=== PATIENT | male | born 1990 | race American Indian/Alaskan Native ===

== ENCOUNTER 2018-01-27 03:34 | Emergency (ER) | payer OTHER ==
[~2018-01-27 03:34] MED LIST: FLEXERIL10 MG PO; NAPROXEN500 MG PO; NORCO 5-325 TA1 EACH PO; PREDNISONE20 MG PO
[2018-01-27] MEDS ORDERED: NORCO 5-325 TA1 EACH PO (06:45)
== END 2018-01-27 07:10 | disposition home or self-care (01) ==
LOC: ED 03:34 → EDBD 03:36 → ED 07:10
DX: S06.0X9A Concussion with loss of consciousness of unspecified duration, initial encounter (principal); S02.2XXA Fracture of nasal bones, initial encounter for closed fracture; S60.222A Contusion of left hand, initial encounter; S60.221A Contusion of right hand, initial encounter; S80.12XA Contusion of left lower leg, initial encounter; S80.11XA Contusion of right lower leg, initial encounter; F10.129 Alcohol abuse with intoxication, unspecified; Z23 Encounter for immunization; Z88.0 Allergy status to penicillin; Y90.8 Blood alcohol level of 240 mg/100 ml or more; Y04.2XXA Assault by strike against or bumped into by another person, initial encounter
CPT/HCPCS: 70450; 70486; 71260; 72125; 73090; 74177; 80053; 81001; 82150; 82550; 83690; 85025; 86850; 86900; 86901; 90471; 90715; 96374; 96375; 99284; G0480; J1170; J2405; J7030; Q9967

== ENCOUNTER 2018-11-08 11:28 | Emergency (ER) | payer OTHER ==
[~2018-11-08] VITALS: Ht 185.4 cm; Wt 74.8 kg
[2018-11-08] MEDS ORDERED: ZOFRAN4 MG PO (15:53)
[2018-11-08] MEDS ORDERED: NORCO 5-325 TA1 EACH PO (15:53)
== END 2018-11-08 16:10 | disposition home or self-care (01) ==
LOC: ED 11:28
DX: R19.7 Diarrhea, unspecified (principal); F17.200 Nicotine dependence, unspecified, uncomplicated; Z88.0 Allergy status to penicillin
CPT/HCPCS: 80053; 81001; 83690; 85025; 87493; 96374; 99284-25; J2405; J7030

== ENCOUNTER 2020-04-23 15:21 | Emergency (ER) | payer OTHER ==
[~2020-04-23] VITALS: Ht 185.4 cm; Wt 79.4 kg
--- OUTSIDE RECORDS SUMMARY | ~2020-04-23 | XMS | Encounter Summary ---
Demographics + + + | Address | [address] | | | [place] [address] | + + + | Home Phone | | + + + | Preferred Language | Unknown | + + + | Marital Status | Single | + + + | Adventist Affiliation | Unknown | + + + | Race | Unknown | + + + | Ethnic Group | Unknown | + + + Author + + + | Author | [facility] | | | and [place] | + + + | Organization | [facility] | | | and [place] | + + + | Address | Unknown | + + + | Phone | Unavailable | + + + Support + + +---------+ + | Name | Relationship | Address | Phone | + + +---------+ + | Shawnee Alberto | ECON | Unknown | | + + +---------+ + Care Team Providers + +------+ + | Care Miner Operator Name | Role | Phone | + +------+ + PCP | Unavailable | + +------+ + Encounter Details +--------+ + + + + | Date | Type | Department | Care Team | Description | +--------+ + + + + | 11/20/ | Hospital | [facility] | | | | 1999 | Encounter | MED CTR GENERIC OP | | | | | | CONV DEPT [address] | | | | | | [address] [place], | | | | | | [place] [address] | | | | | | [phone] | | | +--------+ + + + + Social History + +-------+ +--------+------+ | Tobacco Use | Types | Packs/Day | Years | Date | | | | | Used | | + +-------+ +--------+------+ | Never Assessed | | | | | + +-------+ +--------+------+ + + + | Sex Assigned at | Date Recorded | | | | + + + | Not on file | | + + + documented as of this encounter Plan of Treatment Not on filedocumented as of this encounter Visit Diagnoses Not on filedocumented in this encounter"
--- OUTSIDE RECORDS SUMMARY | ~2020-04-23 | XMS | Encounter Summary ---
Demographics + + + | Address | [address] | | | [place] [address] | + + + | Home Phone | | + + + | Preferred Language | Unknown | + + + | Marital Status | Single | + + + | Christian Affiliation | Unknown | + + + | Race | Unknown | + + + | Ethnic Group | Unknown | + + + Author + + + | Author | [facility] | | | and [place] | + + + | Organization | [facility] | | | and [place] [...] Team Providers + +------+ + | Care Colorist Formulator Name | Role | Phone | + +------+ + PCP | Unavailable | + +------+ + Encounter Details +--------+ + + + + | Date | Type | Department | Care Team | Description | +--------+ + + + + | 10/22/ | Hospital | [facility] | | | | 1999 | Encounter | MED CTR EMERGENCY | | | | | | CENTER [address] | | | | | | [place] | | | | | | [address] | | | | | | [phone] | | | +--------+ + + + [...]
--- OUTSIDE RECORDS SUMMARY | ~2020-04-23 | XMS | Encounter Summary ---
Demographics + + + | Address | [address] | | | [place] [address] | + + + | Home Phone | | + + + | Preferred Language | Unknown | + + + | Marital Status | Single | + + + | Mosque Affiliation | Unknown | + + + | Race | Unknown | + + + | Ethnic Group | Unknown | + + + Author + + + | Author | [facility] | | | and [place] | + + + | Organization | [facility] | | | and [...] Team Providers + +------+ + | Care Iron Piler Name | Role | Phone | + +------+ + PCP | Unavailable | + +------+ + Encounter Details +--------+ + + + + | Date | Type | Department | Care Team | Description | +--------+ + + + + | 12/19/ | Hospital | [facility] | | | | 1999 | Encounter | MED CTR GENERIC OP | | | | | | CONV DEPT [address] | | | | | | [address], | | | | | | [place] [address] | | | | | | [phone] | | | +--------+ + + + [...]
--- OUTSIDE RECORDS SUMMARY | ~2020-04-23 | XMS | Encounter Summary ---
Demographics + + + | Address | [address] | | | [place] [address] | + + + | Home Phone | | + + + | Preferred Language | Unknown | + + + | Marital Status | Single | + + + | Religion Affiliation | Unknown | + + + | Race | Unknown | + + + | Ethnic Group | Unknown | + + + Author + + + | Author | [facility] | | | and [place] | + + + | Organization | [facility] | | | and [place] | [...] Team Providers + +------+ + | Care Steamfitter Apprentice Name | Role | Phone | + +------+ + PCP | Unavailable | + +------+ + Reason for Visit +--------+--------+ + | Reason | Onset | Comments | | | Date | | +--------+--------+ + | Letter | 03/19/ | Colon Recall | | | 2016 | | +--------+--------+ + Encounter Details +--------+ + + + + | Date | Type | Department | Care Team | Description | +--------+ + + + + | 03/19/ | Telephone | [facility] [place] | Junior Lima MD | Letter (Colon | | 2017 | | GASTROENTEROLOGY | [address], [place] | Recall) | | | | [address] [place] | [address] [place], [place] | | | | | [address] [place], [place] | [address] | | | | | [address] | | | | | | [phone] | | | +--------+ + + + [...] + + documented as of this encounter Miscellaneous Notes Telephone Encounter - Elise Pittman - 03/19/2017 4:59 PM PDTAttempted to call patient f or an updated address, [facility] to callback for questions, received return letter for colonoscopy . Closing. documented in t his encounter Plan of Treatment Not on filedocumented as of this encounter Visit Diagnoses Not on filedocumented in this encounter"
--- OUTSIDE RECORDS SUMMARY | ~2020-04-23 | XMS | Encounter Summary ---
Demographics + + + | Address | [address] | | | [place] [address] | + + + | Home Phone | | + + + | Preferred Language | Unknown | + + + | Marital Status | Single | + + + | Rastafarian Affiliation | Unknown | + + + | Race | Unknown | + + + | Ethnic Group | Unknown | + + + Author + + + | Author | [facility] | | | and [place] | + + + | Organization | [facility] | | | and [place] [...] Team Providers + +------+ + | Care Clerical Aide Name | Role | Phone | + +------+ + PCP | Unavailable | + +------+ + Encounter Details +--------+ + + + + | Date | Type | Department | Care Team | Description | +--------+ + + + + | 02/08/ | Hospital | [facility] | | | | 2011 | Encounter | MED CTR MP INTRA OP | | | | | | [address] | | | | | | [place] | | | | | | [address] | | | | | | [phone] | | | +--------+ + + + [...] documented as of this encounter Miscellaneous Notes Op Note - Dieudonne Rosenthal MD - 02/09/2012 10:31 AM PDTPatient Name: Jayden Christianson Gender: Inga Procedure Date: 02/09/2012 9:30 AM Date of : 1990 Age: 21 Admit Type: Outpatient Room: Endo Room 2 Note Status: Finalized Attending MD: Dieudonne Rosenthal MD Procedure: Colonoscopy Indications: Generalized abdominal pain Providers: Duglas Rosenthal MD, Lily Chapman RN, Melba Blancas, Associate Justice, Justus Alcaraz MD (Anesthesia Staff) Referring MD: [facility] Lonnycherie Munoz MD Medicines: IV General Anesthesia w / Propofal Complications: No immediate complications. Estimated blood loss: None. Procedure: - Prior to the procedure, a History and Physical was performed, and patient medications and allergies were reviewed. The risks and benefits of the procedure and the sedation options and risks were discussed with the patient. All questions were answered and informed consent was obtained. Patient identification and proposed procedure were verified by the physician, the nurse and the anesthesiologist in the procedure room. Mental Status Examination: alert and oriented. Airway Examination: Mallampati Class I (tonsillar pillars visualized). Respiratory Examination: clear to auscultation. CV Examination: normal. Prophylactic Antibiotics: The patient does not require prophylactic antibiotics. Prior Anticoagulants: The patient has taken no previous anticoagulant or antiplatelet agents. ASA Grade Assessment: II - A patient with mild systemic disease. After reviewing the risks and benefits, the patient was deemed in satisfactory condition to undergo the procedure. The anesthesia plan was to use general anesthesia. Immediately prior to administration of medications, the patient was re-assessed for adequacy to receive sedatives. The physical status of the patient was re-assessed after the procedure. After I obtained informed consent, the scope was passed under direct vision. Throughout the procedure, the patient's blood pressure, pulse, and oxygen saturations were monitored continuously. The endoscope was introduced through the anus and advanced to the terminal ileum, with identification of the appendiceal orifice and IC valve. The colonoscopy was performed without difficulty. The patient tolerated the procedure well. The quality of the bowel preparation was good. Findings: The perianal and digital rectal examinations were normal. A localized area of the terminal ileum was congested. Biopsy with a cold forceps was performed for histology. The entire examined colon appeared normal. Impression: - Congested ileal mucosa. This was biopsied. - The colon is normal. Recommendation: - Discharge patient to home (ambulatory). - Return to primary care physician as previously scheduled. - Await pathology results. Dieudonne Rosenthal MD Signed Date: 02/09/2012 11:41 AM Number of Addenda: 0 Note initiated on 02/09/2012 9:28 AM Scope Withdrawal Time: N/A Total Procedure Duration Time: 08 minutes 05 seconds <Electronically Signed by Dieudonne Rosenthal MD> 02/09/12 1142 Op Note - Dieudonne Rosenthal MD - 02/09/2012 10:31 AM PDTPatient Name: Jayden Christianson Gender: Inga Procedure Date: 02/09/2012 11:15 AM Date of : 1990 Age: 21 Admit Type: Outpatient Room: Endo Room 2 Note Status: Finalized Attending MD: Dieudonne Rosenthal MD Procedure: Upper GI endoscopy Indications: Dyspepsia Providers: Dieudonne Rosenthal MD, Lily Chapman RN, Melba Blancas, Associate Justice, Franklin Franklin MD (Anesthesia Staff) Referring MD: [facility] MD Tammy Medicines: IV General Anesthesia w/ Propofal Complications: No immediate complications. Estimated blood loss: None. Procedure: - Prior to the procedure, a History and Physical was performed, and patient medications and allergies were reviewed. The risks and benefits of the procedure and the sedation options and risks were discussed with the patient. All questions were answered and informed consent was obtained. Patient identification and proposed procedure were verified by the physician, the nurse and the anesthesiologist in the procedure room. Mental Status Examination: alert and oriented. Airway Examination: Mallampati Class I (tonsillar pillars visualized). Respiratory Examination: clear to auscultation. CV Examination: normal. Prophylactic Antibiotics: The patient does not require prophylactic antibiotics. Prior Anticoagulants: The patient has taken no previous anticoagulant or antiplatelet agents. ASA Grade Assessment: II - A patient with mild systemic disease. After reviewing the risks and benefits, the patient was deemed in satisfactory condition to undergo the procedure. The anesthesia plan was to use general anesthesia. Immediately prior to administration of medications, the patient was re-assessed for adequacy to receive sedatives. The physical status of the patient was re-assessed after the procedure. After obtaining informed consent, the endoscope was passed under direct vision. Throughout the procedure, the patient's blood pressure, pulse, and oxygen saturations were monitored continuously. The endoscope was introduced through the mouth, and advanced to the second part of duodenum. The upper GI endoscopy was accomplished without difficulty. The patient tolerated the procedure well. Findings: A small hiatus hernia was present. Diffuse mildly erythematous mucosa with no bleeding was found in the entire examined stomach. Biopsies were taken with a cold forceps for histology. The examined duodenum was normal. Impression: - Hiatus hernia. - Gastric mucosal abnormality in the stomach characterized by erythema. This was biopsied. - Normal examined duodenum. Recommendation: - Await pathology results. - Discharge patient to home (ambulatory). - The patient will be observed post-procedure, until all discharge criteria are met. - Perform a colonoscopy today. Dieudonne Rosenthal MD Signed Date: 02/09/2012 11:24 AM Number of Addenda: 0 Note initiated on 02/09/2012 11:13 AM Scope Withdrawal Time: N/A Total Procedure Duration Time: 02 minutes 41 seconds <Electronically Signed by Dieudonne Rosenthal MD> 02/09/12 1125 documented in this encounter Plan of Treatment Not on filedocumented as of this encounter Visit Diagnoses Not on filedocumented in this encounter"
--- OUTSIDE RECORDS SUMMARY | ~2020-04-23 | XMS | Encounter Summary ---
Demographics + + + | Address | [address] | | | [place] [address] | + + + | Home Phone | | + + + | Preferred Language | Unknown | + + + | Marital Status | Single | + + + | Baptist Affiliation | Unknown | + + + | Race | Unknown | + + + | Ethnic Group | Unknown | + + + Author + + + | Author | [facility] | | | and [place] | + + + | Organization | [facility] | | | and [place] [...] Team Providers + +------+ + | Care Mining Machinery Assembler Name | Role | Phone | + +------+ + PCP | Unavailable | + +------+ + Encounter Details +--------+ + + + + | Date | Type | Department | Care Team | Description | +--------+ + + + + | 06/24/ | Abstract | [place] [facility] | [facility] | | | 2011 | | Conversion Location | SR | | | | | [address] [facility] | | | | | | [place], [place] | | | | | | [address] | | | | | | [phone] | | | +--------+ + + + [...] + + documented as of this encounter Last Filed Vital Signs + + + + + | Vital Sign | Reading | Time Taken | Comments | + + + + + | Blood Pressure | 116/66 | 01/13/2012 12:00 AM | | | | | PDT | | + + + + + | Pulse | - | - | | + + + + + | Temperature | - | - | | + + + + + | Respiratory Rate | - | - | | + + + + + | Oxygen Saturation | - | - | | + + + + + | Inhaled Oxygen | - | - | | | Concentration | | | | + + + + + | Weight | 70.8 kg (156 lb) | 01/13/2012 12:00 AM | | | | | PDT | | + + + + + | Height | 181 cm (5' 11.25") | 12/10/2011 12:00 AM | | | | | PST | | + + + + + | Body Mass Index | 21.61 | 12/10/2011 12:00 AM | | | | | PST | | + + + + + documented in this encounter Plan of Treatment Not on filedocumented as of this encounter Procedures + +--------+ + + + | Procedure Name | Priori | Date/Time | Associated Diagnosis | Comments | | | ty | | | | + +--------+ + + + | ENDOSCOPY, COLON, | Routin | 02/09/2012 | | Results for this | | DIAGNOSTIC | e | 12:00 AM | | procedure are in the | | | | PDT | | results section. | + +--------+ + + + documented in this encounter Results ENDOSCOPY, COLON, DIAGNOSTIC (02/09/2012 12:00 AM PDT) + + | Specimen | + + | | + + + + + | Narrative | Performed At | + + + | | | + + + documented in this encounter Visit Diagnoses Not on filedocumented in this encounter
--- OUTSIDE RECORDS SUMMARY | ~2020-04-23 | XMS | Encounter Summary ---
Demographics + + + | Address | [address] | | | [place] [address] | + + + | Home Phone | | + + + | Preferred Language | Unknown | + + + | Marital Status | Single | + + + | Roman Catholic Affiliation | Unknown | + + + | Race | Unknown | + + + | Ethnic Group | Unknown | + + + Author + + + | Author | [facility] | | | and [place] | + + + | Organization | [facility] | | | and [place] [...] Team Providers + +------+ + | Care Laboratory Secretary Name | Role | Phone | + +------+ + PCP | Unavailable | + +------+ + Encounter Details +--------+ + + + + | Date | Type | Department | Care Team | Description | +--------+ + + + + | 12/05/ | Hospital | [facility] | | | | 1999 | Encounter | MED CTR GENERIC OP | | | | | | CONV DEPT [address] | | | | | | [address], | | | | | | [place] [address] | | | | | | [phone] | | | +--------+ + + + [...]
--- OUTSIDE RECORDS SUMMARY | ~2020-04-23 | XMS | Clinical Summary ---
Demographics + + + | Address | [address] | | | [place] [address] | + + + | Home Phone | | + + + | Preferred Language | Unknown | + + + | Marital Status | Single | + + + | Gnosticist Affiliation | Unknown | + + + | Race | Unknown | + + + | Ethnic Group | Unknown | + + + Author + + + | Author | [facility] | | | and [place] | + + + | Organization | [facility] | | | and [place] | [...] Team Providers + +------+ + | Care Church Warden Name | Role | Phone | + +------+ + PCP | Unavailable | + +------+ + Allergies No Known Allergies Medications Not on file Active Problems + + + | Problem | Noted Date | + + + | FAMILY HX CA-GASTROINTESTINAL | 01/13/2012 | + + + | BLEEDING-OCCULT BLOOD | 01/13/2012 | + + + | ABDOMINAL PAIN-GENERALIZED | 01/13/2012 | + + + | JAUNDICE | | + + + | ABDOMINAL PAIN, EPIGASTRIC | | + + + | BLOOD IN STOOL | | + + + Social History + +-------+ [...] on file | | + + + Last Filed Vital Signs + + + [...] | | + + + + + Plan of Treatment + + +-------+ + | Health Maintenance | Due Date | Last | Comments | | | | Done | | + + +-------+ + | Vaccine: | | | | | Dtap/Tdap/Td (1 - | 0 | | | | Tdap) | | | | + + +-------+ + | Vaccine: Influenza | | | | | (#1) | 0 | | | + + +-------+ + Results Not on filefrom Last 3 Months
--- OUTSIDE RECORDS SUMMARY | ~2020-04-23 | XMS | Encounter Summary ---
Demographics + + + | Address | [address] | | | [place] [address] | + + + | Home Phone | | + + + | Preferred Language | Unknown | + + + | Marital Status | Single | + + + | Evangelical Affiliation | Unknown | + + + | Race | Unknown | + + + | Ethnic Group | Unknown | + + + Author + + + | Author | [facility] | | | and [place] | + + + | Organization | [facility] | | | and [place] [...] Team Providers + +------+ + | Care Waxed Bag Machine Operator Name | Role | Phone | + +------+ + PCP | Unavailable | + +------+ + Encounter Details +--------+ + + + + | Date | Type | Department | Care Team | Description | +--------+ + + + + | 10/30/ | Hospital | [facility] | | | | 1999 | Encounter | MED CTR GENERIC OP | | | | | | CONV DEPT [address] | | | | | | [address], | | | | | | [place] [address] | | | | | | [phone] | | | +--------+ + + + [...]
[~2020-04-23 15:21] MED LIST changes: +ZOFRAN4 MG PO
[2020-04-23] MEDS ORDERED: NORCO 5-325 TA1 EACH PO (17:09)
[2020-04-23] MEDS ORDERED: PREDNISONE20 MG PO (17:09)
[2020-04-23] MEDS ORDERED: CLINDAMYCIN HC300 MG PO (17:09)
== END 2020-04-23 18:36 | disposition home or self-care (01) ==
LOC: ED 15:21
DX: L03.317 Cellulitis of buttock (principal)
CPT/HCPCS: 80053; 83605; 85025; 96374; 96375; 99283-25; J1100; J1885; J3490; J7030

== ENCOUNTER 2020-05-07 17:38 | Emergency (ER) | payer OTHER ==
[~2020-05-07] VITALS: Ht 185.4 cm; Wt 78.5 kg
[~2020-05-07 17:38] MED LIST changes: +CLINDAMYCIN HC300 MG PO
--- OUTSIDE RECORDS SUMMARY | 2020-05-07 17:40 | XMS ---
PreManage Notification: ELISA [employer] Security Culinary Arts Instructor Events No recent Security Events currently on file CRITERIA MET - [facility] - 2 Visits in 30 Days CARE PROVIDERS PRIYANK GAINES Clinic/Center: Federally Qualified 04/09/2020-[facility] HEALTH - N PHONE: [phone] Oliver has no Care Guidelines for this patient. Ct VISIT COUNT (12 MO.) 2 [facility] TOTAL 2 NOTE: Visits indicate total known visits. ED/UCC VISIT TRACKING (12 MO.) 05/07/2020 17:38 [facility] [place] TYPE: Emergency COMPLAINT: - SKIN PROBLEM 04/23/2020 15:22 [facility] [place] TYPE: Emergency COMPLAINT: - BUG BITE, POSSIBLE INFECTION DIAGNOSES: - Cellulitis of buttock - Cellulitis of buttock INPATIENT VISIT TRACKING (12 MO.) No inpatient visits to display in this time frame [email or web address]
[2020-05-07] MEDS ORDERED: PREDNISONE20 MG PO (18:15)
[2020-05-07] MEDS ORDERED: CLINDAMYCIN HC300 MG PO (18:15)
== END 2020-05-07 20:37 | disposition home or self-care (01) ==
LOC: ED 17:38
DX: L03.211 Cellulitis of face (principal); A46 Erysipelas; F10.129 Alcohol abuse with intoxication, unspecified; F17.200 Nicotine dependence, unspecified, uncomplicated
CPT/HCPCS: 80053; 83605; 85025; 96361; 96374; 96375; 99283-25; G0480; J1100; J1885; J3490; J7030

== ENCOUNTER 2020-07-20 08:57 | Emergency (ER) | payer OTHER ==
[~2020-07-20] VITALS: Ht 185.4 cm; Wt 78.5 kg
== END 2020-07-20 09:40 | disposition home or self-care (01) ==
LOC: ED 08:57
DX: M25.561 Pain in right knee (principal); F17.200 Nicotine dependence, unspecified, uncomplicated; Z88.0 Allergy status to penicillin; Z79.52 Long term (current) use of systemic steroids
CPT/HCPCS: 99283

== ENCOUNTER 2021-03-07 16:41 | Emergency (ER) | payer MEDICAID, OTHER ==
[~2021-03-07] VITALS: Ht 185.4 cm; Wt 78.0 kg
[2021-03-07] MEDS ORDERED: HYDROCODON-ACE1 EA11 PO (18:14)
[2021-03-07] MEDS ORDERED: ONDANSETRON ODT8 MG PO (18:19)
== END 2021-03-07 19:02 | disposition home or self-care (01) ==
LOC: ED 16:41
DX: S06.0X9A Concussion with loss of consciousness of unspecified duration, initial encounter (principal); F10.129 Alcohol abuse with intoxication, unspecified; Y90.6 Blood alcohol level of 120-199 mg/100 ml; V47.6XXA Car passenger injured in collision with fixed or stationary object in traffic accident, initial encounter; F17.200 Nicotine dependence, unspecified, uncomplicated; Z88.0 Allergy status to penicillin
CPT/HCPCS: 70450; 70486; 71260; 72125; 74177; 80053; 85025; 99284-25; J1790; J1885; J2405; J3010; J7030; Q9967